=== PATIENT | male | born 1980 | race American Indian/Alaskan Native ===

== ENCOUNTER 2021-04-07 05:30 | Emergency (ER) | payer SELFPAY ==
--- NOTE | 2021-04-07 05:59 | Emergency Department Report ---
ED General Adult HPI - General Chief complaint: Upper Respiratory Infection Stated complaint: UPPER RESPIRATORY Time Seen by Provider: 04/07/21 05:58 Source: patient Mode of arrival: Ambulatory Limitations: No Limitations - Related Data Allergies Allergy/AdvReac Type Severity Reaction Status Date / Time No Known Allergies Allergy Unverified 04/07/21 05:36 ED Review of Systems ROS: Stated complaint: UPPER RESPIRATORY Other details as noted in HPI ED Past Medical Hx - Past Medical History Previous Medical History?: No - Surgical History Past Surgical History?: No ED Physical Exam - General Limitations: No Limitations ED Course Vital Signs 04/07/21 04/07/21 05:35 05:36 Temperature 98.2 F Pulse Rate 94 H Respiratory 18 Rate Blood Pressure 134/80 O2 Sat by Pulse 98 Oximetry Critical care attestation.: If time is entered above; I have spent that time in minutes in the direct care of this critically ill patient, excluding procedure time. ED Disposition Condition: Stable
[2021-04-07] MEDS ORDERED: ALBUTEROL 2.5 MG/3 ML NEBU IH ONE (09:00)
[2021-04-07] MEDS ORDERED: dexAMETHasone 4 MG/ML VIAL IM STA (09:00)
[2021-04-07] MEDS ORDERED: IPRATROPIUM 0.02% NEBU 2.5 ML IH ONE (09:00)
--- NOTE | 2021-04-07 09:05 | Emergency Department Report ---
ED General Adult HPI - General Chief complaint: Upper Respiratory Infection Stated complaint: UPPER RESPIRATORY Time Seen by Provider: 04/07/21 05:58 Source: patient Mode of arrival: Ambulatory Limitations: No Limitations - History of Present Illness Initial comments: 41-year-old -[place] male patient presents with complaints of cough and wheezing x2 months worsening over the past few days. Patient states he was diagnosed with asthma in August of this year. He states his asthma was well controlled with beclomethasone/formoterol 100/6 which she was prescribed in [place], however he states when he came into the [place] he was prescribed Qvar which also worked well. Patient states he has not had the Qvar in 2 months and that he has been using a rescue inhaler without improvement in his symptoms. Patient states he is uninsured and cannot afford the Qvar. He denies any hemoptysis, fever/chills/sweats, loss of taste or smell, leg pain/swelling, recent long travel, or history of DVT/PE. Patient is a non-smoker. He states he is vaccinated against COVID-19. No other past medical history per patient. He also reports he was seen at another ER 1 week ago and prescribed a Z-Jose and his symptoms have not improved with this. - Related Data Home Medications Medication Instructions Recorded Confirmed Last Taken Albuterol 0.63% NEBS 8.5 mg PO DAILY 04/07/21 04/07/21 Unknown Previous Rx's Medication Instructions Recorded Last Taken Type Albuterol Sulfate [Proventil Hfa] 6.7 gm IH Q4H PRN #1 hfa.aer.ad 04/07/21 Unknown Rx Beclomethasone Dipropionate [Qvar 1 - 2 puff IH Q12H 30 Days #1 04/07/21 Unknown Rx Redihaler] hfa.aeroba Montelukast Sodium 10 mg PO QDAY 30 Days #30 tablet 04/07/21 Unknown Rx Prednisone [predniSONE 10 mg 10 mg PO .TAPER #1 tab.ds.pk 04/07/21 Unknown Rx (6-Day Pack, 21 Tabs)] Allergies Allergy/AdvReac Type Severity Reaction Status Date / Time No Known Allergies Allergy Verified 04/07/21 09:09 ED Review of Systems ROS: Stated complaint: UPPER RESPIRATORY Other details as noted in HPI Constitutional: denies: chills, diaphoresis, fever, malaise Respiratory: cough, shortness of breath, wheezing Cardiovascular: denies: chest pain Gastrointestinal: denies: abdominal pain, nausea, vomiting Skin: denies: change in color ED Past Medical Hx - Past Medical History Previous Medical History?: No - Surgical History Past Surgical History?: No - Medications Home Medications: Home Medications Medication Instructions Recorded Confirmed Last Taken Type Albuterol 0.63% NEBS 8.5 mg PO DAILY 04/07/21 04/07/21 Unknown History Albuterol Sulfate [Proventil Hfa] 6.7 gm IH Q4H PRN #1 hfa.aer.ad 04/07/21 Unknown Rx Beclomethasone Dipropionate [Qvar 1 - 2 puff IH Q12H 30 Days #1 04/07/21 Unknown Rx Redihaler] hfa.aeroba Montelukast Sodium 10 mg PO QDAY 30 Days #30 tablet 04/07/21 Unknown Rx Prednisone [predniSONE 10 mg 10 mg PO .TAPER #1 tab.ds.pk 04/07/21 Unknown Rx (6-Day Pack, 21 Tabs)] ED Physical Exam - General Limitations: No Limitations General appearance: alert, in no apparent distress - Head Head exam: Present: atraumatic, normocephalic - Eye Eye exam: Present: normal appearance - Neck Neck exam: Present: normal inspection - Respiratory Respiratory exam: Present: wheezes (Mild diffuse), decreased breath sounds (Diffusely). Absent: respiratory distress, rales, rhonchi, stridor - Cardiovascular Cardiovascular Exam: Present: regular rate, normal rhythm - Extremities Exam Extremities exam: Absent: calf tenderness (No swelling or pain noted bilaterally) - Neurological Exam Neurological exam: Present: alert, oriented X3, normal gait - Psychiatric Psychiatric exam: Present: normal affect, normal mood - Skin Skin exam: Present: warm, dry, intact, normal color. Absent: rash ED Course Vital Signs 04/07/21 04/07/21 05:35 05:36 Temperature 98.2 F Pulse Rate 94 H Respiratory 18 Rate Blood Pressure 134/80 O2 Sat by Pulse 98 Oximetry ED Medical Decision Making - Medical Decision Making 41-year-old -[place] male patient presents with complaints of cough and wheezing x2 months worsening over the past few days. Patient states he was diagnosed with asthma in August of this year. He states his asthma was well controlled with beclomethasone/formoterol 100/6 which she was prescribed in [place], however he states when he came [place] the [place] he was prescribed Qvar which also worked well. Patient states he has not had the Qvar in 2 months and that he has been using a rescue inhaler without improvement in his symptoms. Patient states he is uninsured and cannot afford the Qvar. He denies any hemoptysis, fever/chills/sweats, loss of taste or smell, leg pain/swelling, recent long travel, or history of DVT/PE. Patient is a non-smoker. He states he is vaccinated against COVID-19. No other past medical history per patient. He also reports he was seen at another ER 1 week ago and prescribed a Z-Jose and his symptoms have not improved with this. Patient given continuous DuoNeb and states shortness of breath and tightness in his chest has resolved. Qvar refilled montelukast added to decrease asthma exacerbations. Patient informed to follow-up with primary care provider within 3 to 5 days, referral provided. He is well-appearing, his vitals are within normal limits, he is stable for discharge home. Discussed in detail signs and symptoms that should prompt immediate return to the ED with patient who verbalizes understanding Critical care attestation.: If time is entered above; I have spent that time in minutes in the direct care of this critically ill patient, excluding procedure time. ED Disposition Clinical Impression: Asthma, mild persistent Disposition: 01 HOME / SELF CARE / HOMELESS Is pt being admited?: No Condition: Stable Instructions: Asthma (ED), Asthma, Adult Referrals: [facility] [Provider Group] - 3-5 Days
[2021-04-07 09:14] VITALS: BP 133/85
--- NOTE | 2021-04-08 10:40 | Electrocardiograph Report ---
[facility] Test Date: 2021-04-07 Test Time: 08:40:47 Pat Name: PATRICK GALLEGO Department: Room: Gender: M [employer] Chemist: JOCELYNE : 1980 Requested By: REYMUNDO CHAPA Order Number: [id number] Reading MD: Sekou Johnson Measurements Intervals [place] Rate: 65 P: 69 OK: 157 QRS: 70 QRSD: 77 T: 54 QT: 360 QTc: 375 Interpretive Statements Sinus rhythm No previous ECG available for comparison Electronically Signed On 04-08-2021 10:40:08 EST by Sekou Johnson
== END 2021-04-07 11:43 | disposition home or self-care (01) ==
LOC: ED 05:30
DX: J45.909 Unspecified asthma, uncomplicated (principal); Z79.899 Other long term (current) drug therapy
CPT/HCPCS: 93005; 94640; 96372; 99283; J1100; 94644